=== PATIENT | male | born 1955 | race Caucasian/White ===

== ENCOUNTER 2019-04-22 18:57 | Emergency (ER) | payer MEDICARE ==
[2019-04-22 19:14] VITALS: TEMP 98.1
[2019-04-22] MEDS ORDERED: diphenhydrAMINE 50 MG/ML 1 ML VIAL IVP STA (19:40)
[2019-04-22] MEDS ORDERED: methylPREDNISolone SOD SUCCI 125 MG/2 ML VIAL IV STA (19:40)
[2019-04-22] MEDS ORDERED: FAMOTIDINE 20 MG/2 ML VIAL IV STA (19:40)
--- NOTE | 2019-04-22 20:40 | ED ---
General Adult HPI - General Chief complaint: Eye Problems Stated complaint: Left Eye Swollen Time Seen by Provider: 04/22/19 19:32 Source: patient Mode of arrival: ambulatory - History of Present Illness Initial comments: 64-year-old male, on lisinopril presenting today for chief complaint of left eye swelling. Patient states that just prior to arrival his eye began swelling. He states he was just sitting on the couch. Patient denies any ingestion of shellfish or penis. Denies any swelling of the lips or throat. Denies any difficulty breathing or swallowing. Patient states the swelling began rapidly and out of no where. Patient denies any pain in the eye. The extraocular eye movements per patient has a sensitivity to light. Patient denies any redness of the conjunctiva. Patient denies any eye drainage. Patient denies any headaches or vomiting. Remaining review of system negative upon arrival patient appears well no signs of acute distress however obvious swelling of the left eye lid. - Related Data Previous Rx's Medication Instructions Recorded Famotidine [Pepcid] 20 mg PO DAILY 5 Days #5 tablet 04/22/19 predniSONE 20 mg PO BID 5 Days #10 tab 04/22/19 Allergies Allergy/AdvReac Type Severity Reaction Status Date / Time No Known Allergies Allergy Verified 04/22/19 19:14 Review of Systems ROS Statement: Those systems with pertinent positive or pertinent negative responses have been documented in the HPI. ROS Other: All systems not noted in ROS Statement are negative. Past Medical History Past Medical History: Hyperlipidemia, Hypertension History of Any Multi-Drug Resistant Organisms: None Reported Additional Past Surgical History / Comment(s): Bilateral elbow surgery, carpal tunnel surg Past Psychological History: No Psychological Hx Reported Smoking Status: Current every day smoker Past Alcohol Use History: Heavy Past Drug Use History: Marijuana General Exam - General Exam Comments Initial Comments: General: The patient is awake and alert, in no distress, and does not appear acutely ill. Eye: +3 mm pupils are equal, round and reactive to light, extra-ocular movements are intact and without pain. No nystagmus. There is normal conjunctiva bilaterally. No signs of icterus. Ears, nose, mouth and throat: There are moist mucous membranes and no oral lesions. Swelling of left upper eye lid. No surrounding cellulitis of the orbits or pain to palpation of the swelling of the eyelids Neck: The neck is supple, there is no tenderness or JVD. Cardiovascular: There is a regular rate and rhythm. No murmur, rub or gallop is appreciated. Respiratory: Lungs are clear to auscultation, respirations are non-labored, breath sounds are equal. No wheezes, stridor, rales, or rhonchi. Gastrointestinal: [Soft, non-distended, non-tender abdomen without masses or organomegaly noted. There is no rebound or guarding present. No CVA tenderness. Bowel sounds are unremarkable.] Musculoskeletal: Normal ROM, no tenderness. Strength 5/5. Sensation intact. Pulses equal bilaterally 2+. Neurological: A&O x 3. CN II-XII intact, There are no obvious motor or sensory deficits. Coordination appears grossly intact. Speech is normal. Skin: Skin is warm and dry and no rashes or lesions are noted. Psychiatric: Cooperative, appropriate mood & affect, normal judgment. Course Vital Signs 04/22/19 04/22/19 19:10 21:01 Temperature 98.1 F Pulse Rate 66 63 Respiratory 17 16 Rate Blood Pressure 164/85 174/85 O2 Sat by Pulse 98 Oximetry Medical Decision Making - Medical Decision Making 64-year-old female who currently takes lisinopril for hypertension presenting for left eye swelling. He states it began suddenly. Patient's physical examination findings consistent with a ALLERGIC reaction. Patient was given Benadryl Pepcid and Solu-Medrol. Patient began to have immediate resolution of symptoms. Patient denied any symptoms concerning for GI edema of the lips mouth or throat. Patient states difficulty swallowing. No evidence of anaphylaxis. No rash. Patient was provided Pepcid and prednisone on discharge. Did discuss the case by attending provider Dr. Mauro who is agreeable with care plan and discharge today. Pt instructed to discontinue lisinopril and f/u with PCP on Wednesday, patient states he does have a scheduled appointment Wednesday if theyre unable to see him Wednesday for alternative hypertensive medication. Return para meters were discussed at length, as well as the importance of follow-up. Patient verbalized understanding. Disposition Clinical Impression: Allergic reaction Disposition: HOME SELF-CARE Condition: Good Instructions (If sedation given, give patient instructions): Anaphylaxis (ED), Allergy Testing (ED) Additional Instructions: Please use medication as discussed. Please discontinue lisinopril. Follow-up with PCP on Wednesday as scheduled. Please return to emergency room if the symptoms increase or worsen or for any other concerns. Prescriptions: Famotidine [Pepcid] 20 mg PO DAILY 5 Days #5 tablet predniSONE 20 mg PO BID 5 Days #10 tab Is patient prescribed a controlled substance at d/c from ED?: No Referrals: Nati Gutierrez DO [Primary Care Provider] - 1-2 days Time of Disposition: 20:38
[2019-04-22 21:02] VITALS: BP 174/85; PULSE 63; RESP 16
== END 2019-04-22 21:00 | disposition home or self-care (01) ==
LOC: EC 18:57
DX: T78.40XA Allergy, unspecified, initial encounter (principal); I10 Essential (primary) hypertension; F17.200 Nicotine dependence, unspecified, uncomplicated; Z79.899 Other long term (current) drug therapy
CPT/HCPCS: 99283; 96374; 96375 ×2; J1200; J2930

== ENCOUNTER 2021-03-01 20:41 | Inpatient (IN) | payer MEDICARE, OTHER ==
[2021-03-01] MEDS ORDERED: ONDANSETRON 4 MG/2 ML VIAL IVP STA (21:16)
[2021-03-01] MEDS ORDERED: MORPHINE SULFATE 2 MG/ML SYRINGE IVP STA (21:16)
[2021-03-01] MEDS ORDERED: SODIUM CHLORIDE 0.9% 500 ML 500 ML IV ONE (21:17)
[2021-03-01 22:07] LABS: ALT 110 U/L (4-49); AST 193 U/L (17-59); African American GFR (CKD) >90 (>60 ml/min/1.73 sqM); Albumin 3.1 g/dL (3.5-5.0); Alkaline Phosphatase 136 U/L (38-126); Anion Gap 5 mmol/L; Blood Urea Nitrogen 48 mg/dL (9-20); Calcium 8.5 mg/dL (8.4-10.2); Carbon Dioxide 34 mmol/L (22-30); Chloride 102 mmol/L (98-107); Non-African American GFR(CKD) >90 (>60 ml/min/1.73 sqM); Potassium 3.4 mmol/L (3.5-5.1); Sodium 141 mmol/L (137-145); Total Bilirubin 1.1 mg/dL (0.2-1.3); Total Protein 5.6 g/dL (6.3-8.2)
[2021-03-01 22:10] LABS: INR 1.4 (<1.2); Partial Thromboplastin Time 24.8 sec (22.0-30.0); Prothrombin Time 14.4 sec (9.0-12.0)
[2021-03-01 22:12] LABS: Anisocytosis Slight; HCT 42.7 % (39.0-53.0); HGB 14.6 gm/dL (13.0-17.5); MCH 30.2 pg (25.0-35.0); MCHC 34.3 g/dL (31.0-37.0); MCV 87.9 fL (80.0-100.0); Mean Platelet Volume 9.4; RBC 4.85 m/uL (4.30-5.90); RDW 16.2 % (11.5-15.5)
[2021-03-01 22:18] LABS: WBC 0.3 k/uL (3.8-10.6)
[2021-03-01 22:19] LABS: Glucose 45 mg/dL (74-99)
[2021-03-01] MEDS ORDERED: DEXTROSE 50% SYRINGE 50 ML IVP STA (22:23)
[2021-03-01 22:24] LABS: Glucose,Whole Blood 49 mg/dL (75-99)
--- NOTE | 2021-03-01 22:24 | XR ---
EXAMINATION TYPE: XR thoracic spine complete DATE OF EXAM: 03/01/2021 COMPARISON: NONE HISTORY: Neck pain TECHNIQUE: 3 views FINDINGS: There is some spurring in the mid thoracic spine. There is no compression fracture. Posteri or elements are intact. There is no paraspinal mass. IMPRESSION: Spondylotic changes. No fracture seen.
--- NOTE | 2021-03-01 22:25 | XR ---
EXAMINATION TYPE: XR cervical spine comp DATE OF EXAM: 03/01/2021 COMPARISON: NONE HISTORY: Neck pain TECHNIQUE: 5 views FINDINGS: Vertebra have normal alignment. There is degenerative anterior spurring in the mid and lowe r cervical spine. Posterior elements are intact. There is uncovertebral spurring and neural foraminal narrowing at C5-6 and C6-7. Atlantoaxial facet joint is intact. There are no cervical ribs. IMPRESSION: Spondylotic changes and mainly in the lower cervical spine. No fracture.
--- NOTE | 2021-03-01 22:29 | XR ---
EXAMINATION TYPE: XR ribs RT w pa chest xray DATE OF EXAM: 03/01/2021 COMPARISON: NONE HISTORY: Pain TECHNIQUE: 5 views FINDINGS: Heart and mediastinum are normal. There is coarse interstitial infiltrate in the right lung . There is air under the right diaphragm. There appears to be large pneumoperitoneum. I see no defini te pneumothorax. There are no hilar masses. I see no rib fracture. IMPRESSION: No rib fracture seen. Large pneumoperitoneum with air under the left and right diaphragm. Patient had feeding tube placed 9 days ago. I think this is too much air for 9 days after the proced ure. This exam was discussed with ER staff at 10:30 PM.
[2021-03-01 22:49] LABS: Glucose,Whole Blood 174 mg/dL (75-99)
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
[2021-03-01 23:17] LABS: Poikilocytosis (M) Present
[2021-03-01 23:18] LABS: RBC Fragments Present
[2021-03-01 23:20] LABS: Ovalocytes Present; Platelet Count 74 k/uL (150-450)
--- NOTE | 2021-03-01 23:43 | CT ---
EXAMINATION TYPE: CT abdomen pelvis w con DATE OF EXAM: 03/01/2021 COMPARISON: HISTORY: Free air on xray CT DLP: 566 mGycm Automated exposure control for dose reduction was used. CONTRAST: Performed with IV Contrast, patient injected with 100 mL of Isovue 300. Images obtained from the diaphragm to the floor the pelvis with IV contrast. There is some airspace infiltrate at the right lung base. 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 There is large pneumoperitoneum. There is gastrostomy tube in the stomach. The tube is in the anterio r body of the stomach. There is some retraction of the stomach away from the anterior abdominal wall due to the large pneumoperitoneum. There is contrast material in the large bowel down to the rectum. Bladder distends smoothly. I see no sign of a bowel obstruction. Kidneys show satisfactory contrast o pacification. There is no hydronephrosis. There is 4 cm cortical cyst anterior right kidney. There ar e spondylotic changes in the lumbar spine. There is no compression fracture. The left hip shows signi ficant arthritic disease with sclerosis and subchondral cystic changes and severe joint space narrowi ng. There is no hip fracture. There is no sign of pancreatic mass. Spleen is intact. Liver shows no focal defect. The bile ducts ar e not dilated. IMPRESSION: There is large pneumoperitoneum. Source of the air is not identified. There is gastrostomy tube which shows a stomach that is pulled away from the anterior abdominal wall by the pneumoperitoneum. There is no fluid in the peritoneal cavity to suggest a bowel leak. Pulmonary emphysema and right lower lobe pneumonia.
[2021-03-02] LABS: Glucose,Whole Blood 83 mg/dL (75-99)
[2021-03-02] MEDS ORDERED: PIPERACILLIN-TAZOBACTAM 3.375 GM in SODIUM CHLORIDE 0.9% 100 ML IVPB ONE ×2
[2021-03-02] MEDS ORDERED: NALOXONE 0.4 MG/ML 1 ML VIAL IV PRN (00:10)
[2021-03-02] MEDS ORDERED: ONDANSETRON 4 MG/2 ML VIAL IVP PRN (00:10)
[2021-03-02] MEDS ORDERED: DEXTROSE 5%-0.45% NACL 1,000 ML IV ONE (00:14)
[2021-03-02] MEDS ORDERED: Potassium Replacement Protocol 1 EACH MISC MISCELLANE PRN (00:15)
--- NOTE | 2021-03-02 01:18 | XR ---
EXAMINATION TYPE: XR abdomen 1V DATE OF EXAM: 03/02/2021 COMPARISON: NONE HISTORY: PEG tube check TECHNIQUE: Single view FINDINGS: A single view was obtained supine with contrast injected into the gastrostomy tube. Contras t was 30 mL of Isovue. There is contrast opacification of the stomach. I see no extravasation. There is some pre-existing contrast material in the descending colon: and in the sigmoid colon. Gastrostomy tube appears in good position with no evidence of contrast extravasation.
[2021-03-02] MEDS: POTASSIUM CHLORIDE 10 MEQ in WATER FOR INJECTION 1 100ML.BAG IVPB SCH ×4 (02:04→05:46)
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
[2021-03-02 06:03] LABS: Anisocytosis Slight; HCT 38.2 % (39.0-53.0); MCH 30.2 pg (25.0-35.0); MCHC 34.1 g/dL (31.0-37.0); MCV 88.5 fL (80.0-100.0); Mean Platelet Volume 8.8; RBC 4.31 m/uL (4.30-5.90)
[2021-03-02 06:11] LABS: Platelet Count 70 k/uL (150-450); WBC 0.3 k/uL (3.8-10.6)
[2021-03-02 06:53] LABS: Ovalocytes Present; RBC Fragments Present
[2021-03-02 06:55] LABS: Crenated RBC Present; Large Platelets Present
[2021-03-02 07:27] LABS: Glucose,Whole Blood 46 mg/dL (75-99)
[2021-03-02 07:40] LABS: Glucose,Whole Blood 146 mg/dL (75-99)
[2021-03-02] MEDS ORDERED: DEXTROSE 50% SYRINGE 50 ML IVP STA ×3 (07:45→18:01)
[2021-03-02] MEDS: INSULIN ASPART (NovoLOG) 100 UNIT/ML VIAL SQ SCH ×4 (07:50→21:42)
[2021-03-02] MEDS: PIPERACILLIN-TAZOBACTAM 3.375 GM in SODIUM CHLORIDE 0.9% 100 ML IVPB SCH ×2 (09:29→18:03)
[2021-03-02 10:37] LABS: African American GFR (CKD) 131.8 (60.0-200.0); Albumin 3.2 g/dL (3.80-4.90); Albumin/Globulin Ratio 1.52 (1.60-3.17); Anion Gap 4.6 mmol/L (4.00-12.00); Calcium 8.1 mg/dL (8.7-10.3); Carbon Dioxide 31.4 mmol/L (21.6-31.8); Globulin 2.1 g/dL (1.6-3.3); Non-African American GFR(CKD) 113.7 (60.0-200.0); Potassium 3.5 mmol/L (3.5-5.5); Total Bilirubin 1.2 mg/dL (0.3-1.2); Total Protein 5.3 g/dL (6.2-8.2)
[2021-03-02 12:19] LABS: Glucose,Whole Blood 37 mg/dL (75-99)
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
[2021-03-02 12:37] LABS: Glucose,Whole Blood 206 mg/dL (75-99)
[2021-03-02] MEDS: PANTOPRAZOLE 40 MG TABLET PO SCH (13:47)
[2021-03-02] MEDS: METOPROLOL TARTRATE 25 MG TAB PO SCH (13:47)
[2021-03-02] MEDS: AMIODARONE 200 MG TAB PO SCH (13:48)
[2021-03-02 17:37] LABS: Glucose,Whole Blood 39 mg/dL (75-99)
[2021-03-02 17:39] LABS: Glucose,Whole Blood 33 mg/dL (75-99)
[2021-03-02 17:53] LABS: Glucose,Whole Blood 41 mg/dL (75-99)
[2021-03-02] MEDS: DEXTROSE 5%-0.45% NACL 1,000 ML IV SCH (18:06)
[2021-03-02 18:31] LABS: Glucose,Whole Blood 135 mg/dL (75-99)
[2021-03-02 18:51] LABS: African American GFR (CKD) >90 (>60 ml/min/1.73 sqM); Anion Gap 5 mmol/L; Blood Urea Nitrogen 33 mg/dL (9-20); Calcium 8.2 mg/dL (8.4-10.2); Carbon Dioxide 29 mmol/L (22-30); Chloride 104 mmol/L (98-107); Glucose 112 mg/dL (74-99); Non-African American GFR(CKD) >90 (>60 ml/min/1.73 sqM); Potassium 3.1 mmol/L (3.5-5.1); Sodium 138 mmol/L (137-145)
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
[2021-03-02] MEDS: ATORVASTATIN 20 MG TAB PO SCH (20:42)
[2021-03-03] MEDS: PIPERACILLIN-TAZOBACTAM 3.375 GM in SODIUM CHLORIDE 0.9% 100 ML IVPB SCH ×2 (00:08→08:05)
[2021-03-03] MEDS: DEXTROSE 5%-0.45% NACL 1,000 ML IV SCH (00:08)
[2021-03-03 00:09] LABS: Glucose,Whole Blood 84 mg/dL (75-99)
[2021-03-03] MEDS: INSULIN ASPART (NovoLOG) 100 UNIT/ML VIAL SQ SCH ×4 (00:09→17:43)
[2021-03-03 05:53] LABS: Glucose,Whole Blood 93 mg/dL (75-99)
[2021-03-03 06:16] LABS: HCT 38.3 % (39.0-53.0); MCH 30.3 pg (25.0-35.0); MCV 89.2 fL (80.0-100.0); Mean Platelet Volume 8.9; RDW 15.6 % (11.5-15.5)
[2021-03-03 06:17] LABS: Platelet Count 29 k/uL (150-450); WBC 0.7 k/uL (3.8-10.6)
[2021-03-03 06:49] LABS: Anisocytosis (M) Present; Poikilocytosis (M) Present; RBC Fragments Present
[2021-03-03 06:50] LABS: Crenated RBC Present
[2021-03-03] MEDS: AMIODARONE 200 MG TAB PO SCH (08:05)
[2021-03-03] MEDS: METOPROLOL TARTRATE 25 MG TAB PO SCH (08:05)
[2021-03-03] MEDS: PANTOPRAZOLE 40 MG TABLET PO SCH (08:05)
[2021-03-03 08:37] LABS: Glucose,Whole Blood 152 mg/dL (75-99)
[2021-03-03 10:13] LABS: Glucose,Whole Blood 146 mg/dL (75-99)
[2021-03-03 10:20] LABS: ALT 396 U/L (4-49); African American GFR (CKD) >90 (>60 ml/min/1.73 sqM); Albumin 2.4 g/dL (3.5-5.0); Alkaline Phosphatase 304 U/L (38-126); Amylase <30 U/L (30-110); Anion Gap 3 mmol/L; Blood Urea Nitrogen 33 mg/dL (9-20); Carbon Dioxide 29 mmol/L (22-30); Chloride 106 mmol/L (98-107); Globulin 2.5 g/dL; Glucose 100 mg/dL (74-99); Lipase <10 U/L (23-300); Non-African American GFR(CKD) >90 (>60 ml/min/1.73 sqM); Sodium 138 mmol/L (137-145); Total Bilirubin 1.4 mg/dL (0.2-1.3); Total Protein 4.9 g/dL (6.3-8.2)
[2021-03-03 10:24] LABS: Potassium 3.2 mmol/L (3.5-5.1)
[2021-03-03 10:36] LABS: AST 909 U/L (17-59)
[2021-03-03 11:37] LABS: Glucose,Whole Blood 175 mg/dL (75-99)
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
[2021-03-03 17:52] LABS: Glucose,Whole Blood 100 mg/dL (75-99)
--- NOTE | 2021-03-03 20:05 | P.PN ---
Subjective Progress Note Date: 03/03/21 Patient was sleeping comfortably at the time of my evaluation. He was easily arousable. He did not appear to be any significant pain. He is tolerating tube feeds. Objective - Vital Signs Vital signs: Vital Signs Temp 98.4 F 03/03/21 11:31 Pulse 74 03/03/21 11:31 Resp 16 03/03/21 11:31 BP 117/64 03/03/21 11:31 Pulse Ox 96 03/03/21 11:31 Intake & Output 03/03/21 03/03/21 03/04/21 06:59 18:59 06:59 Intake Total 1740 Output Total 425 Balance 1315 Weight 43.9 kg 43.9 kg Intake: Intake, IV Titration 1400 Amount Dextrose 5%-0.45% NaCl 1, 1200 000 ml @ 100 mls/hr IV . Q10H [facility] Rx#:[id number] Piperacillin-Tazobactam 3 200 .375 gm In Sodium Chloride 0.9% 100 ml @ 25 mls/hr IVPB Q8H [facility] Rx#: [id number] Tube Feeding 340 Output: Urine 425 Other: Voiding Method Urinal Diaper # Voids 1 3 # Bowel Movements 3 - Constitutional General appearance: Present: no acute distress - EENT Eyes: Present: EOMI ENT: Present: hearing grossly normal, normal oropharynx - Respiratory Respiratory: bilateral: CTA - Cardiovascular Rhythm: regular Heart sounds: normal: S1, S2 - Gastrointestinal Gastrointestinal Comment(s): PEG tube in situ. Site appears clean. Incision superior to site with gaurav, CDI General gastrointestinal: Present: normal bowel sounds - Integumentary Integumentary: Present: normal - Neurologic Neurologic: Present: CNII-XII intact - Musculoskeletal Musculoskeletal: Present: generalized weakness, strength equal bilaterally - Psychiatric Psychiatric: Present: A&O x's 3 - Labs CBC & Chem 7: 03/03/21 05:41 03/03/21 05:41 Labs: Abnormal Lab Results - Last 24 Hours (Table) 03/03/21 03/03/21 03/03/21 Range/Units 05:41 05:41 08:35 WBC 0.7 L* (3.8-10.6) k/uL Hct 38.3 L (39.0-53.0) % RDW 15.6 H (11.5-15.5) % Plt Count 29 L D (150-450) k/uL Potassium 3.2 L (3.5-5.1) mmol/L BUN 33 H (9-20) mg/dL Creatinine 0.50 L (0.66-1.25) mg/dL Glucose 100 H (74-99) mg/dL POC Glucose (mg/dL) 152 H (75-99) mg/dL Calcium 8.0 L (8.4-10.2) mg/dL Total Bilirubin 1.4 H (0.2-1.3) mg/dL AST 909 H (17-59) U/L ALT 396 H (4-49) U/L Alkaline Phosphatase 304 H (38-126) U/L Total Protein 4.9 L (6.3-8.2) g/dL Albumin 2.4 L (3.5-5.0) g/dL Amylase <30 L (30-110) U/L Lipase <10 L (23-300) U/L 03/03/21 03/03/21 03/03/21 Range/Units 10:10 11:31 17:32 WBC (3.8-10.6) k/uL Hct (39.0-53.0) % RDW (11.5-15.5) % Plt Count (150-450) k/uL Potassium (3.5-5.1) mmol/L BUN (9-20) mg/dL Creatinine (0.66-1.25) mg/dL Glucose (74-99) mg/dL POC Glucose (mg/dL) 146 H 175 H 100 H (75-99) mg/dL Calcium (8.4-10.2) mg/dL Total Bilirubin (0.2-1.3) mg/dL AST (17-59) U/L ALT (4-49) U/L Alkaline Phosphatase (38-126) U/L Total Protein (6.3-8.2) g/dL Albumin (3.5-5.0) g/dL Amylase (30-110) U/L Lipase (23-300) U/L Microbiology - Last 24 Hours (Table) 03/02/21 00:35 Blood Culture - Preliminary Blood No Growth after 24 hours 03/02/21 00:35 Blood Culture - Preliminary Blood No Growth after 24 hours Assessment and Plan (1) Pneumoperitoneum Narrative/Plan: The patient has been evaluated by surgery. At this time and pneumoperitoneum was felt to be most likely postsurgical. Scans have shown no extravasation of contrast. The patient is tolerating tube feeds quite well without any evidence of peritoneal leak. Current Visit: Yes Status: Acute Code(s): K66.8 - OTHER SPECIFIED DISORDERS OF PERITONEUM SNOMED Code(s): 40940761 (2) Failure to thrive Narrative/Plan: This was due to progressive difficulty in swallowing, after surgery and subsequent chemoradiation. Patient is now status post PEG placement and is tolerating PEG feeds well so far. Current Visit: Yes Status: Acute Code(s): WCS3832 - SNOMED Code(s): 01734726 (3) Head and neck cancer Narrative/Plan: Patient is status post radical resection and is currently receiving chemoradiation. He is approximately half way through his treatment. His presentation with progressive difficulty swallowing, malnutrition and failure to thrive is, in most part, due to effects of treatment. - Case was discussed with case management. They have discussed the case with the patient's daughter. At this time subacute rehab is being considered which appears reasonable. However with rehab, the patient will not be able to have chemotherapy and radiation and therefore that will necessitate a break in treatment. - The patient's performance status at this time is certainly quite compromised. Therefore if a short-term rehab such as 1-2 weeks, along with better ongoing nutrition through his tube feeds is able to improve his performance status to where he can resume treatment with much better chance of completing completing it without further interruptions. In this situation, based on risk versus benefit this would be reasonable in my opinion. This was discussed in detail with the patient Current Visit: Yes Status: Acute Code(s): C76.0 - MALIGNANT NEOPLASM OF HEAD, FACE AND NECK SNOMED Code(s): 358243667 (4) Lung cancer Narrative/Plan: The patient is status post resection for stage III adenocarcinoma of the lung. The plan is for him to have adjuvant chemotherapy after completion of chemoradiation for his head and neck cancer. Even from this standpoint, measures that can improve his performance status sufficiently, would be quite beneficial. Current Visit: Yes Status: Acute Code(s): C34.90 - MALIGNANT NEOPLASM OF UNSP PART OF UNSP BRONCHUS OR LUNG SNOMED Code(s): 225827774 (5) Bicytopenia Narrative/Plan: Due to antineoplastic chemotherapy. Patient's total WBC 0.7. He is afebrile at this point. Start growth factors to enable faster WBC recovery. Plt count is 29 without any evidence of bleeding. Avoid any and the correlation or antiplatelet therapy or NSAIDs. Transfuse if less than 10. Current Visit: Yes Status: Acute Code(s): D75.89 - OTHER SPECIFIED DISEASES OF BLOOD AND BLOOD-FORMING ORGANS SNOMED Code(s): 56395480
[2021-03-03] MEDS: FILGRASTIM-SNDZ 300 MCG/0.5 ML SYRINGE SQ SCH (22:15)
[2021-03-03] MEDS: ATORVASTATIN 20 MG TAB PO SCH (22:15)
[2021-03-03 23:57] LABS: Glucose,Whole Blood 103 mg/dL (75-99)
[2021-03-04] MEDS: INSULIN ASPART (NovoLOG) 100 UNIT/ML VIAL SQ SCH ×4 (00:15→17:36)
[2021-03-04 06:32] LABS: Glucose,Whole Blood 192 mg/dL (75-99)
[2021-03-04 06:58] LABS: Anisocytosis Slight; HGB 14.3 gm/dL (13.0-17.5); MCH 29.6 pg (25.0-35.0); MCHC 33.4 g/dL (31.0-37.0); MCV 88.8 fL (80.0-100.0); Mean Platelet Volume 8.5; RBC 4.84 m/uL (4.30-5.90); RDW 16.3 % (11.5-15.5)
[2021-03-04 07:05] LABS: WBC 1.2 k/uL (3.8-10.6)
[2021-03-04 07:07] LABS: Platelet Count 15 k/uL (150-450)
[2021-03-04 09:16] LABS: African American GFR (CKD) >90 (>60 ml/min/1.73 sqM); Anion Gap 4 mmol/L; Blood Urea Nitrogen 42 mg/dL (9-20); Calcium 8.2 mg/dL (8.4-10.2); Carbon Dioxide 30 mmol/L (22-30); Chloride 109 mmol/L (98-107); Glucose 173 mg/dL (74-99); Non-African American GFR(CKD) >90 (>60 ml/min/1.73 sqM); Sodium 143 mmol/L (137-145)
[2021-03-04] MEDS: METOPROLOL TARTRATE 25 MG TAB PO SCH (09:31)
[2021-03-04] MEDS: PANTOPRAZOLE 40 MG TABLET PO SCH (09:31)
[2021-03-04] MEDS: AMIODARONE 200 MG TAB PO SCH (09:31)
[2021-03-04 09:40] LABS: Magnesium 1.8 mg/dL (1.6-2.3); Potassium 3.9 mmol/L (3.5-5.1)
[2021-03-04 10:29] LABS: Band Neutrophils % 6 %; Lymphocytes # (M) 0.22 k/uL (1.0-4.8); Monocytes # (M) 0.02 k/uL (0-1.0); Neutrophils % (M) 74 %; Nucleated Red Blood Cells 0 /100 WBC (0-0); Total Cells Counted 50
[2021-03-04 10:30] LABS: Crenated RBC Present; Poikilocytosis (M) Present
[2021-03-04 11:45] LABS: Glucose,Whole Blood 215 mg/dL (75-99)
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
--- NOTE | 2021-03-04 13:44 | P.PN ---
Subjective Progress Note Date: 03/04/21 Principal diagnosis: Failure to thrive He is still lethargic, Platelets have trended down further and LFTs increase quite a bit. I spoke to primary team and will discontinue Statin, further evaluate liver ultrasound and chest xray, hold discharge today. Coags ordered and CBC and CMP in place for am. Objective - Vital Signs Vital signs: Vital Signs Temp 98.3 F 03/04/21 11:51 Pulse 82 03/04/21 11:51 Resp 18 03/04/21 11:51 BP 128/78 03/04/21 11:51 Pulse Ox 97 03/04/21 11:51 Intake & Output 03/03/21 03/04/21 03/04/21 18:59 06:59 18:59 Intake Total 570 Output Total 1 Balance 569 Weight 43.9 kg 42.3 kg Intake: Tube Feeding 570 Output: Stool 1 Other: Voiding Method Urinal Urinal Urinal Diaper Diaper Diaper # Voids 3 0 # Bowel Movements 3 0 - Constitutional General appearance: Present: mild distress - EENT Eyes: Present: scleral icterus, normal appearance ENT: Present: other - Neck Neck: Present: normal ROM - Respiratory Respiratory: left: diminished, rhonchi - Cardiovascular Rhythm: regularly irregular - Peripheral edema leg Peripheral Edema: bilateral: 1+ - Gastrointestinal General gastrointestinal: Present: distended, tenderness - Integumentary Integumentary: Present: pale - Musculoskeletal Musculoskeletal: Present: generalized weakness - Psychiatric Psychiatric: Present: A&O x's 3 - Labs CBC & Chem 7: 03/04/21 06:27 03/04/21 06:27 Labs: Abnormal Lab Results - Last 24 Hours (Table) 03/03/21 03/03/21 03/04/21 Range/Units 17:32 23:55 06:27 WBC 1.2 L* (3.8-10.6) k/uL RDW 16.3 H (11.5-15.5) % Plt Count 15 L* (150-450) k/uL Neutrophils # (Manual) 0.90 L (1.3-7.7) k/uL Lymphocytes # (Manual) 0.22 L (1.0-4.8) k/uL Chloride (98-107) mmol/L BUN (9-20) mg/dL Creatinine (0.66-1.25) mg/dL Glucose (74-99) mg/dL POC Glucose (mg/dL) 100 H 103 H (75-99) mg/dL Calcium (8.4-10.2) mg/dL 03/04/21 03/04/21 03/04/21 Range/Units 06:27 06:30 11:28 WBC (3.8-10.6) k/uL RDW (11.5-15.5) % Plt Count (150-450) k/uL Neutrophils # (Manual) (1.3-7.7) k/uL Lymphocytes # (Manual) (1.0-4.8) k/uL Chloride 109 H (98-107) mmol/L BUN 42 H (9-20) mg/dL Creatinine 0.53 L (0.66-1.25) mg/dL Glucose 173 H (74-99) mg/dL POC Glucose (mg/dL) 192 H 215 H (75-99) mg/dL Calcium 8.2 L (8.4-10.2) mg/dL Microbiology - Last 24 Hours (Table) 03/02/21 00:35 Blood Culture - Preliminary Blood No Growth after 48 hours 03/02/21 00:35 Blood Culture - Preliminary Blood No Growth after 48 hours Assessment and Plan (1) Elevated liver enzymes Current Visit: Yes Status: Acute Code(s): R74.8 - ABNORMAL LEVELS OF OTHER SERUM ENZYMES SNOMED Code(s): 578475460 (2) Thrombocytopenia Current Visit: Yes Status: Acute Code(s): D69.6 - THROMBOCYTOPENIA, UNSPECIFIED SNOMED Code(s): 306305617 (3) Generalized muscle weakness Current Visit: Yes Status: Acute Code(s): M62.81 - MUSCLE WEAKNESS (GENERALIZED) SNOMED Code(s): 88667551 (4) Bicytopenia Current Visit: Yes Status: Acute Code(s): D75.89 - OTHER SPECIFIED DISEASES OF BLOOD AND BLOOD-FORMING ORGANS SNOMED Code(s): 71590054 (5) Head and neck cancer Current Visit: Yes Status: Acute Code(s): C76.0 - MALIGNANT NEOPLASM OF HEAD, FACE AND NECK SNOMED Code(s): 953317655 (6) Lung cancer Current Visit: Yes Status: Acute Code(s): C34.90 - MALIGNANT NEOPLASM OF UNSP PART OF UNSP BRONCHUS OR LUNG SNOMED Code(s): 667393419 Plan: Assessment and Plan: Increased Liver Function: - Recheck in am - Discontinue Statin - Check Coags Worsening Thrombocytopenia: - Possibly due to LFTs - Await Coags - MOnitor for s/s bleeding Pneumoperitoneum The patient has been evaluated by surgery. At this time and pneumoperitoneum was felt to be most likely postsurgical. Scans have shown no extravasation of contrast. The patient is tolerating tube feeds Failure to thrive - Generalized Myopathy/Weakess - This was due to progressive difficulty in swallowing, after surgery and subsequent chemoradiation. - Patient is now status post PEG placement and is tolerating PEG feeds well so far. Head and neck cancer Patient is status post radical resection and is currently receiving chemoradiation. He is approximately half way through his treatment. His presentation with progressive difficulty swallowing, malnutrition and failure to thrive is, in most part, due to effects of treatment. - Case was discussed with case management. They have discussed the case with the patient's daughter. At this time subacute rehab is being considered which appears reasonable. However with rehab, the patient will not be able to have chemotherapy and radiation and therefore that will necessitate a break in treatment. - The patient's performance status at this time is certainly quite compromised. Therefore if a short-term rehab such as 1-2 weeks, along with better ongoing nutrition through his tube feeds is able to improve his performance status to where he can resume treatment with much better chance of completing completing it without further interruptions. In this situation, based on risk versus benefit this would be reasonable in my opinion. This was discussed in detail with the patient Lung cancer The patient is status post resection for stage III adenocarcinoma of the lung. The plan is for him to have adjuvant chemotherapy after completion of chemoradiation for his head and neck cancer. Even from this standpoint, measures that can improve his performance status sufficiently, would be quite beneficial. (5) Bicytopenia - Secondary to chemotherapy - Continue on growth factor, WBC 1.5 - Check chest xray today Discussed in detail with primary team Physician Attest: I have completed the full history and physical and agree with above dictation, dictated as a scribe.
--- NOTE | 2021-03-04 14:11 | XR ---
EXAMINATION TYPE: XR chest 2V DATE OF EXAM: 03/04/2021 COMPARISON: NONE HISTORY: Gastrostomy tube in stomach. Free air. Left lobe is diminished. TECHNIQUE: Frontal and lateral views of the chest are obtained. FINDINGS: There is a large amount of pneumoperitoneum, which is known below the bilateral hemidiaphr agms. Diffuse patchy airspace opacities are seen at the right midlung and right lower lobe suggestiv e of infectious/inflammatory process, such as pneumonia.. No large pleural effusion. No pneumothorax. The left lung is relatively clear. Heart size is within normal limits. Atherosclerotic aorta. Hypera eration of lungs and flattening of the diaphragms with increased retrosternal airspace suggestive of severe COPD. IMPRESSION: 1. Patchy airspace opacities within the right midlung and right lung base are suggestive of infectiou s/inflammatory processes, such as pneumonia. 2. Severe emphysematous changes. 3. Atherosclerotic aorta. 4. Large amount of pneumoperitoneum under the hemidiaphragms is known.
[2021-03-04 14:20] LABS: INR 1.1 (<1.2); Partial Thromboplastin Time 25.8 sec (22.0-30.0); Prothrombin Time 11.9 sec (9.0-12.0)
[2021-03-04 17:27] LABS: Glucose,Whole Blood 101 mg/dL (75-99)
[2021-03-04] MEDS: busPIRone HCl 5 MG TAB PO PRN (17:43)
[2021-03-04] MEDS: FILGRASTIM-SNDZ 300 MCG/0.5 ML SYRINGE SQ SCH (17:45)
[2021-03-04] MEDS: MORPHINE SULFATE 2 MG/ML SYRINGE IVP PRN ×2 (19:58→23:35)
[2021-03-04 23:53] LABS: Glucose,Whole Blood 209 mg/dL (75-99)
[2021-03-05] MEDS: INSULIN ASPART (NovoLOG) 100 UNIT/ML VIAL SQ SCH ×4 (00:02→17:38)
[2021-03-05] MEDS: MORPHINE SULFATE 2 MG/ML SYRINGE IVP PRN ×5 (04:41→21:49)
[2021-03-05 05:59] LABS: Glucose,Whole Blood 87 mg/dL (75-99)
[2021-03-05 07:49] LABS: HCT 36.6 % (39.0-53.0); HGB 13.1 gm/dL (13.0-17.5); MCH 31.6 pg (25.0-35.0); MCHC 35.9 g/dL (31.0-37.0); MCV 88.1 fL (80.0-100.0); Mean Platelet Volume 10.3; RBC 4.15 m/uL (4.30-5.90); RDW 15.5 % (11.5-15.5)
[2021-03-05 08:07] LABS: Platelet Count 12 k/uL (150-450)
[2021-03-05 08:08] LABS: WBC 0.7 k/uL (3.8-10.6)
[2021-03-05] MEDS: METOPROLOL TARTRATE 25 MG TAB PO SCH (08:26)
[2021-03-05] MEDS: PANTOPRAZOLE 40 MG TABLET PO SCH (08:26)
[2021-03-05] MEDS: AMIODARONE 200 MG TAB PO SCH (08:26)
--- NOTE | 2021-03-05 09:46 | US ---
EXAMINATION TYPE: US liver DATE OF EXAM: 03/05/2021 COMPARISON: CT 4 days ago CLINICAL HISTORY: increased LFTs. EXAM MEASUREMENTS: Liver Length: 14.1 cm Gallbladder Wall: 0.3 cm CBD: 0.3 cm Right Kidney: cm Extensive midline bowel gas and air. Patient has peg tube. Pancreas: Obscured by bowel gas Liver: wnl Gallbladder: No stones seen Evidence for sonographic Castro's sign: No CBD: wnl Right Kidney: echogenic, loss of cortical medullary differentiation. Lower pole cyst measures 2.6 x 3.4 x 3.2 cm. Suboptimal study due to PEG tube and overlying bowel gas. Visualized liver slightly heterogeneous wit hout worrisome mass or ductal dilatation seen on images saved. No shadowing mobile gallstones in gall bladder. No gross right-sided hydronephrosis. IMPRESSION: Suboptimal study without new intrahepatic mass or intrahepatic ductal dilatation.
[2021-03-05 10:02] LABS: Crenated RBC Present; Poikilocytosis (M) Present
[2021-03-05] MEDS ORDERED: MELATONIN 5 MG TABLET PO PRN (11:40)
[2021-03-05] MEDS ORDERED: ACETAMINOPHEN TAB 325 MG TAB PO STA (11:41)
[2021-03-05 12:09] LABS: Glucose,Whole Blood 150 mg/dL (75-99)
[2021-03-05 12:23] LABS: Total Bilirubin 1.1 mg/dL (0.2-1.3)
--- NOTE | 2021-03-05 13:06 | P.PN ---
Subjective Progress Note Date: 03/05/21 Principal diagnosis: Failure to thrive Liver function improved, Chest xray reveals likely pneumonia, infectious process. Right mid/lower lobe. Patient is neutropenic therefore cefepime ordered. Repeat newton cultures ordered. Platelets 12K, no sign of bleeding, Liver function improved, ultrasound without etiology Objective - Vital Signs Vital signs: Vital Signs Temp 98.3 F 03/05/21 11:35 Pulse 82 03/05/21 11:35 Resp 16 03/05/21 11:35 BP 124/86 03/05/21 11:35 Pulse Ox 95 03/05/21 11:35 Intake & Output 03/04/21 03/05/21 03/05/21 18:59 06:59 18:59 Intake Total 780 240 Balance 780 240 Weight 43.7 kg Intake: Tube Feeding 480 240 Other 300 Other: Voiding Method Urinal Urinal Diaper Diaper # Voids 2 2 # Bowel Movements 1 1 - Exam - Constitutional General appearance: Present: mild distress - EENT Eyes: Present: scleral icterus, normal appearance ENT: Present: other - Neck Neck: Present: normal ROM - Respiratory Respiratory: Right: diminished, rhonchi - Cardiovascular Rhythm: regularly irregular - Peripheral edema leg Peripheral Edema: bilateral: 1+ - Gastrointestinal General gastrointestinal: Present: distended, tenderness - Integumentary Integumentary: Present: pale - Musculoskeletal Musculoskeletal: Present: generalized weakness - Psychiatric Psychiatric: Present: A&O x's 3 - Labs CBC & Chem 7: 03/05/21 07:15 03/04/21 06:27 Labs: Abnormal Lab Results - Last 24 Hours (Table) 03/04/21 03/04/21 03/05/21 Range/Units 17:23 23:50 07:15 WBC 0.7 L* (3.8-10.6) k/uL RBC 4.15 L (4.30-5.90) m/uL Hct 36.6 L (39.0-53.0) % Plt Count 12 L* (150-450) k/uL POC Glucose (mg/dL) 101 H 209 H (75-99) mg/dL AST (17-59) U/L ALT (4-49) U/L 03/05/21 03/05/21 Range/Units 11:49 12:06 WBC (3.8-10.6) k/uL RBC (4.30-5.90) m/uL Hct (39.0-53.0) % Plt Count (150-450) k/uL POC Glucose (mg/dL) 150 H (75-99) mg/dL AST 158 H (17-59) U/L ALT 259 H (4-49) U/L Microbiology - Last 24 Hours (Table) 03/02/21 00:35 Blood Culture - Preliminary Blood No Growth after 72 hours 03/02/21 00:35 Blood Culture - Preliminary Blood No Growth after 72 hours Assessment and Plan (1) Elevated liver enzymes Current Visit: Yes Status: Acute Code(s): R74.8 - ABNORMAL LEVELS OF OTHER SERUM ENZYMES SNOMED Code(s): 042692425 (2) Thrombocytopenia Current Visit: Yes Status: Acute Code(s): D69.6 - THROMBOCYTOPENIA, UNSPECIFIED SNOMED Code(s): 822520306 (3) Generalized muscle weakness Current Visit: Yes Status: Acute Code(s): M62.81 - MUSCLE WEAKNESS (GENERALIZED) SNOMED Code(s): 70786315 (4) Bicytopenia Current Visit: Yes Status: Acute Code(s): D75.89 - OTHER SPECIFIED DISEASES OF BLOOD AND BLOOD-FORMING ORGANS SNOMED Code(s): 82850507 (5) Head and neck cancer Current Visit: Yes Status: Acute Code(s): C76.0 - MALIGNANT NEOPLASM OF HEAD, FACE AND NECK SNOMED Code(s): 279168157 (6) Lung cancer Current Visit: Yes Status: Acute Code(s): C34.90 - MALIGNANT NEOPLASM OF UNSP PART OF UNSP BRONCHUS OR LUNG SNOMED Code(s): 217490231 Plan: Assessment and Plan: Pneumonia: - In picture of neutropenia: - IV antibiotics and repeat cultures ordered Neutropenia: - COntinue on Zarxio - Daily CBC - Abx - Monitoring closely Increased Liver Function: - Recheck in am - Improved - Discontinue Statin - Check Coags - Ultrasound without abnormalities Worsening Thrombocytopenia: - increased LFTs, however trending diwn - Stable Coags - MOnitor for s/s bleeding Pneumoperitoneum The patient has been evaluated by surgery. At this time and pneumoperitoneum was felt to be most likely postsurgical. Scans have shown no extravasation of contrast. The patient is tolerating tube feeds Failure to thrive - Generalized Myopathy/Weakess - This was due to progressive difficulty in swallowing, after surgery and subse quent chemoradiation. - Patient is now status post PEG placement and is tolerating PEG feeds well so far. Head and neck cancer Patient is status post radical resection and is currently receiving chemoradiation. He is approximately half way through his treatment. His pr esentation with progressive difficulty swallowing, malnutrition and failure to thrive is, in most part, due to effects of treatment. - Case was discussed with case management. They have discussed the case with the patient's daughter. At this time subacute rehab is being considered which appears reasonable. However with rehab, the patient will not be able to have chemotherapy and radiation and therefore that will necessitate a break in treatment. - The patient's performance status at this time is certainly quite compromised. Therefore if a short-term rehab such as 1-2 weeks, along with better ongoing nutrition through his tube feeds is able to improve his performance status to where he can resume treatment with much better chance of completing completing it without further interruptions. In this situation, based on risk versus benefit this would be reasonable in my opinion. This was discussed in detail with the patient Lung cancer The patient is status post resection for stage III adenocarcinoma of the lung. The plan is for him to have adjuvant chemotherapy after completion of chemoradiation for his head and neck cancer. Even from this standpoint, measures that can improve his performance status sufficiently, would be quite beneficial. Discussed in detail with primary team
[2021-03-05 13:08] LABS: African American GFR (CKD) 144.5 (60.0-200.0); Albumin 2.8 g/dL (3.80-4.90); Albumin/Globulin Ratio 1.4 (1.60-3.17); Anion Gap 6.9 mmol/L (4.00-12.00); Calcium 8.5 mg/dL (8.7-10.3); Carbon Dioxide 33.1 mmol/L (21.6-31.8); Non-African American GFR(CKD) 124.6 (60.0-200.0); Potassium 3.4 mmol/L (3.5-5.5); Total Bilirubin 1.1 mg/dL (0.3-1.2); Total Protein 4.8 g/dL (6.2-8.2)
[2021-03-05 15:12] LABS: Appearance,Urine Clear (Clear); Bilirubin,Urine Negative (Negative); Blood,Urine Moderate (Negative); Color,Urine Yellow; Glucose,Urine (UA) Trace (Negative); Ketones,Urine Negative (Negative); Leukocyte Esterase,Urine Negative (Negative); Mucus,Urine Rare /hpf; Nitrite,Urine Negative (Negative); Protein,Urine 1+ (Negative); RBC,Urine 9 /hpf (0-5); Specific Gravity,Urine 1.021 (1.001-1.035); Squamous Epithelial Cell,Urine 1 /hpf (0-4); WBC,Urine 4 /hpf (0-5)
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
[2021-03-05] MEDS ORDERED: CEFEPIME 2 GM in SODIUM CHLORIDE 0.9% 100 ML IVPB ONE (16:00)
[2021-03-05 17:23] LABS: Glucose,Whole Blood 208 mg/dL (75-99)
[2021-03-05] MEDS: FILGRASTIM-SNDZ 300 MCG/0.5 ML SYRINGE SQ SCH (17:38)
--- NOTE | 2021-03-05 21:42 | P.PN ---
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 In the ER he underwent an extensive radiologic evaluation as well. He was found have pneumoperitoneum and surgery was contacted who felt it was related to his recent PEG tube insertion. He was admitted for further surgical evaluation and pain control. Oncology and surgery were consulted. Patient tolerated tube feeds without difficulty. He developed worsening thrombocytopenia throughout his hospital stay as well as neutropenia felt to be secondary to chemotherapy. He was started on GM-CSF. He also developed transaminitis. Liver ultrasound did not show any signs of metastatic disease. Statin was held. Thoracic spine e-vcx-nlbhojjxipu changes, no fracture Cervical spine o-rpr-sieabriopvt changes, no fracture Rib and chest [id number], coarse interstitial infiltrate in the right lung CT abdomen and pelvis-large pneumoperitoneum, gastrostomy tube shows a stomach of pulling away from the anterior abdominal wall secondary to pneumoperitoneum, pulmonary emphysema and right lower lobe pneumonia Abdominal a-itn-Z-tube in good position with no extravasation of contrast Chest x-ray 03/04-patchy airspace opacities in the right midlung and right lung base Patient seen and examined at bedside. He reports that he wants to go home. He reports he spent a lot of time in the hospital over the last 8 months. We discussed that his platelets are low and his white blood cell count is low and that I will need to get clearance from oncology prior to discharge. He reports that this pain is currently well controlled. General: non toxic, no distress, frail, chronically ill-appearing, wasting of temporal and buccal mucosa Derm: warm, dry Head: atraumatic, normocephalic, symmetric Eyes: EOMI, no lid lag, anicteric sclera Mouth: no lip lesion, mucus membranes dry Cardiovascular: S1S2 reg, no murmur, positive posterior tibial pulse bilateral, Lungs: Decreased breath sounds bilateral, no rhonchi, no rales , no accessory muscle use Abdominal: soft, tender to palpation near tube site, no guarding, no appreciable organomegaly Ext: no gross muscle atrophy, no edema, no contractures Neuro: CN II-XI grossly intact, no focal neuro deficits Psych: Alert, oriented, appropriate affect Pneumoperitoneum -Status post peg tube placement and felt to be an appropriate cause of this. No leaking noted from G2 psych evaluation -Surgery recommendations appreciated Neutropenia and thrombocytopenia secondary to chemotherapy for cancer of the head and neck -Oncology recommendations -On GM-CSF -No indication for transfusion at this time line-follow CBC -Oncology has started the patient on cefepime secondary to concerns for pneumonia in the setting of neutropenia. Concern would be that the right lung infiltrate is more reflective of his known cancer with no complaints of increased cough or shortness of breath Severe protein calorie malnutrition, failure to thrive -Continue with tube feedings -Seen by speech therapy. Patient was determined not safe to swallow and would need a modified barium swallow study, however he declined to undergo this s wallow study and he realizes he is at risk for aspiration. Transaminitis -Likely secondary to medications -Statin on hold -Liver ultrasound without any signs of metastatic disease Hypernatremia -Likely secondary to decreased water intake -Increase free water tube feeds and 30-75 mL every 4 hours -Repeat sodium level in a.m. History of lung cancer Hypertension Dyslipidemia Objective - Vital Signs Vital signs: Vital Signs Temp 98.4 F 03/05/21 19:33 Pulse 87 03/05/21 20:00 Resp 14 03/05/21 20:00 BP 147/88 03/05/21 19:33 Pulse Ox 99 03/05/21 19:33 Intake & Output 03/05/21 03/05/21 03/06/21 06:59 18:59 06:59 Intake Total 240 Balance 240 Weight 43.7 kg 43.7 kg Intake: Tube Feeding 240 Other: Voiding Method Urinal Urinal Diaper Diaper # Voids 2 1 # Bowel Movements 1 1 - Labs CBC & Chem 7: 03/05/21 07:15 03/05/21 07:15 Labs: Abnormal Lab Results - Last 24 Hours (Table) 03/04/21 03/05/21 03/05/21 Range/Units 23:50 07:15 07:15 WBC 0.7 L* (3.8-10.6) k/uL RBC 4.15 L (4.30-5.90) m/uL Hct 36.6 L (39.0-53.0) % Plt Count 12 L* (150-450) k/uL Sodium 150 H (135-145) mmol/L Potassium 3.4 L (3.5-5.5) mmol/L Chloride 110 H (96-109) mmol/L Carbon Dioxide 33.1 H (21.6-31.8) mmol/L BUN 38.0 H (9.0-27.0) mg/dL Creatinine 0.4 L (0.6-1.5) mg/dL BUN/Creatinine Ratio 95.00 H (12.00-20.00) Ratio Glucose 115 H (70-110) mg/dL POC Glucose (mg/dL) 209 H (75-99) mg/dL Calcium 8.5 L (8.7-10.3) mg/dL AST 164 H (14-35) U/L ALT 282 H (10-49) U/L Alkaline Phosphatase 386 H (41-126) U/L Total Protein 4.8 L (6.2-8.2) g/dL Albumin 2.80 L (3.80-4.90) g/dL Albumin/Globulin Ratio 1.40 L (1.60-3.17) g/dL Urine Protein (Negative) Urine Glucose (UA) (Negative) Urine Blood (Negative) Urine RBC (0-5) /hpf Urine Mucus (None) /hpf 03/05/21 03/05/21 03/05/21 Range/Units 11:49 12:06 14:43 WBC (3.8-10.6) k/uL RBC (4.30-5.90) m/uL Hct (39.0-53.0) % Plt Count (150-450) k/uL Sodium (135-145) mmol/L Potassium (3.5-5.5) mmol/L Chloride (96-109) mmol/L Carbon Dioxide (21.6-31.8) mmol/L BUN (9.0-27.0) mg/dL Creatinine (0.6-1.5) mg/dL BUN/Creatinine Ratio (12.00-20.00) Ratio Glucose (70-110) mg/dL POC Glucose (mg/dL) 150 H (75-99) mg/dL Calcium (8.7-10.3) mg/dL AST 158 H (14-35) U/L ALT 259 H (10-49) U/L Alkaline Phosphatase (41-126) U/L Total Protein (6.2-8.2) g/dL Albumin (3.80-4.90) g/dL Albumin/Globulin Ratio (1.60-3.17) g/dL Urine Protein 1+ H (Negative) Urine Glucose (UA) Trace H (Negative) Urine Blood Moderate H (Negative) Urine RBC 9 H (0-5) /hpf Urine Mucus Rare H (None) /hpf 03/05/21 Range/Units 17:21 WBC (3.8-10.6) k/uL RBC (4.30-5.90) m/uL Hct (39.0-53.0) % Plt Count (150-450) k/uL Sodium (135-145) mmol/L Potassium (3.5-5.5) mmol/L Chloride (96-109) mmol/L Carbon Dioxide (21.6-31.8) mmol/L BUN (9.0-27.0) mg/dL Creatinine (0.6-1.5) mg/dL BUN/Creatinine Ratio (12.00-20.00) Ratio Glucose (70-110) mg/dL POC Glucose (mg/dL) 208 H (75-99) mg/dL Calcium (8.7-10.3) mg/dL AST (14-35) U/L ALT (10-49) U/L Alkaline Phosphatase (41-126) U/L Total Protein (6.2-8.2) g/dL Albumin (3.80-4.90) g/dL Albumin/Globulin Ratio (1.60-3.17) g/dL Urine Protein (Negative) Urine Glucose (UA) (Negative) Urine Blood (Negative) Urine RBC (0-5) /hpf Urine Mucus (None) /hpf Microbiology - Last 24 Hours (Table) 03/02/21 00:35 Blood Culture - Preliminary Blood No Growth after 72 hours 03/02/21 00:35 Blood Culture - Preliminary Blood No Growth after 72 hours
[2021-03-06 00:10] LABS: Glucose,Whole Blood 144 mg/dL (75-99)
[2021-03-06] MEDS: CEFEPIME 2 GM in SODIUM CHLORIDE 0.9% 100 ML IVPB SCH ×3 (00:22→17:52)
[2021-03-06] MEDS: INSULIN ASPART (NovoLOG) 100 UNIT/ML VIAL SQ SCH ×4 (00:23→17:50)
[2021-03-06 05:35] LABS: HCT 39.6 % (39.0-53.0); HGB 13.6 gm/dL (13.0-17.5); MCH 30.6 pg (25.0-35.0); MCHC 34.3 g/dL (31.0-37.0); MCV 89.2 fL (80.0-100.0); Mean Platelet Volume 8.1; RBC 4.43 m/uL (4.30-5.90); RDW 15.4 % (11.5-15.5)
[2021-03-06 05:38] LABS: WBC 0.8 k/uL (3.8-10.6)
[2021-03-06 05:39] LABS: Platelet Count 9 k/uL (150-450)
[2021-03-06 05:48] LABS: Glucose,Whole Blood 199 mg/dL (75-99)
[2021-03-06] MEDS: PANTOPRAZOLE 40 MG TABLET PO SCH (07:20)
[2021-03-06] MEDS: AMIODARONE 200 MG TAB PO SCH (07:20)
[2021-03-06] MEDS: METOPROLOL TARTRATE 25 MG TAB PO SCH (07:20)
[2021-03-06 11:18] LABS: Glucose,Whole Blood 225 mg/dL (75-99)
--- NOTE | 2021-03-06 11:45 | P.PN ---
Subjective Progress Note Date: 03/06/21 Principal diagnosis: Failure to thrive WBC decreased 0.8 today, still awaiting cmp. platelets 9K, transfusion ordered. Patient planning for home with PT/OT. remains afebrile Objective - Vital Signs Vital signs: Vital Signs Temp 98 F 03/06/21 11:09 Pulse 83 03/06/21 11:09 Resp 18 03/06/21 11:09 BP 131/81 03/06/21 11:09 Pulse Ox 98 03/06/21 11:09 Intake & Output 03/05/21 03/06/21 03/06/21 18:59 06:59 18:59 Intake Total 0 Output Total 200 Balance -200 0 Weight 43.7 kg 44 kg Intake: Blood Product 0 Platelet Pheresis Pas 0 Psoralen Unit [id number] Output: Urine 200 Other: Voiding Method Urinal Diaper # Voids 1 1 # Bowel Movements 1 - Exam - Constitutional General appearance: Present: mild distress - EENT Eyes: Present: scleral icterus, normal appearance ENT: Present: other - Neck Neck: Present: normal ROM - Respiratory Respiratory: Right: diminished, rhonchi - Cardiovascular Rhythm: regularly irregular - Peripheral edema leg Peripheral Edema: bilateral: 1+ - Gastrointestinal General gastrointestinal: Present: distended, tenderness - Integumentary Integumentary: Present: pale - Musculoskeletal Musculoskeletal: Present: generalized weakness - Psychiatric Psychiatric: Present: A&O x's 3 - Labs CBC & Chem 7: 03/06/21 04:53 03/05/21 07:15 Labs: Abnormal Lab Results - Last 24 Hours (Table) 03/05/21 03/05/21 03/05/21 Range/Units 07:15 11:49 12:06 WBC (3.8-10.6) k/uL Plt Count (150-450) k/uL Sodium 150 H (135-145) mmol/L Potassium 3.4 L (3.5-5.5) mmol/L Chloride 110 H (96-109) mmol/L Carbon Dioxide 33.1 H (21.6-31.8) mmol/L BUN 38.0 H (9.0-27.0) mg/dL Creatinine 0.4 L (0.6-1.5) mg/dL BUN/Creatinine Ratio 95.00 H (12.00-20.00) Ratio Glucose 115 H (70-110) mg/dL POC Glucose (mg/dL) 150 H (75-99) mg/dL Calcium 8.5 L (8.7-10.3) mg/dL AST 164 H 158 H (14-35) U/L ALT 282 H 259 H (10-49) U/L Alkaline Phosphatase 386 H (41-126) U/L Total Protein 4.8 L (6.2-8.2) g/dL Albumin 2.80 L (3.80-4.90) g/dL Albumin/Globulin Ratio 1.40 L (1.60-3.17) g/dL Urine Protein (Negative) Urine Glucose (UA) (Negative) Urine Blood (Negative) Urine RBC (0-5) /hpf Urine Mucus (None) /hpf 03/05/21 03/05/21 03/06/21 Range/Units 14:43 17:21 00:08 WBC (3.8-10.6) k/uL Plt Count (150-450) k/uL Sodium (135-145) mmol/L Potassium (3.5-5.5) mmol/L Chloride (96-109) mmol/L Carbon Dioxide (21.6-31.8) mmol/L BUN (9.0-27.0) mg/dL Creatinine (0.6-1.5) mg/dL BUN/Creatinine Ratio (12.00-20.00) Ratio Glucose (70-110) mg/dL POC Glucose (mg/dL) 208 H 144 H (75-99) mg/dL Calcium (8.7-10.3) mg/dL AST (14-35) U/L ALT (10-49) U/L Alkaline Phosphatase (41-126) U/L Total Protein (6.2-8.2) g/dL Albumin (3.80-4.90) g/dL Albumin/Globulin Ratio (1.60-3.17) g/dL Urine Protein 1+ H (Negative) Urine Glucose (UA) Trace H (Negative) Urine Blood Moderate H (Negative) Urine RBC 9 H (0-5) /hpf Urine Mucus Rare H (None) /hpf 03/06/21 03/06/21 03/06/21 Range/Units 04:53 05:46 11:17 WBC 0.8 L* (3.8-10.6) k/uL Plt Count 9 L* (150-450) k/uL Sodium (135-145) mmol/L Potassium (3.5-5.5) mmol/L Chloride (96-109) mmol/L Carbon Dioxide (21.6-31.8) mmol/L BUN (9.0-27.0) mg/dL Creatinine (0.6-1.5) mg/dL BUN/Creatinine Ratio (12.00-20.00) Ratio Glucose (70-110) mg/dL POC Glucose (mg/dL) 199 H 225 H (75-99) mg/dL Calcium (8.7-10.3) mg/dL AST (14-35) U/L ALT (10-49) U/L Alkaline Phosphatase (41-126) U/L Total Protein (6.2-8.2) g/dL Albumin (3.80-4.90) g/dL Albumin/Globulin Ratio (1.60-3.17) g/dL Urine Protein (Negative) Urine Glucose (UA) (Negative) Urine Blood (Negative) Urine RBC (0-5) /hpf Urine Mucus (None) /hpf Microbiology - Last 24 Hours (Table) 03/02/21 00:35 Blood Culture - Preliminary Blood No Growth after 96 hours 03/02/21 00:35 Blood Culture - Preliminary Blood No Growth after 96 hours Assessment and Plan (1) Elevated liver enzymes Current Visit: Yes Status: Acute Code(s): R74.8 - ABNORMAL LEVELS OF OTHER SERUM ENZYMES SNOMED Code(s): 095520486 (2) Thrombocytopenia Current Visit: Yes Status: Acute Code(s): D69.6 - THROMBOCYTOPENIA, UNSPECIFIED SNOMED Code(s): 511464482 (3) Generalized muscle weakness Current Visit: Yes Status: Acute Code(s): M62.81 - MUSCLE WEAKNESS (GENERALIZED) SNOMED Code(s): 50756541 (4) Bicytopenia Current Visit: Yes Status: Acute Code(s): D75.89 - OTHER SPECIFIED DISEASES OF BLOOD AND BLOOD-FORMING ORGANS SNOMED Code(s): 96143462 (5) Head and neck cancer Current Visit: Yes Status: Acute Code(s): C76.0 - MALIGNANT NEOPLASM OF HEAD, FACE AND NECK SNOMED Code(s): 025543191 (6) Lung cancer Current Visit: Yes Status: Acute Code(s): C34.90 - MALIGNANT NEOPLASM OF UNSP PART OF UNSP BRONCHUS OR LUNG SNOMED Code(s): 243695015 Plan: Assessment and Plan: Pneumonia: - In picture of neutropenia: - IV antibiotics and repeat cultures ordered - Recommend Levaquin at discharge given likely discharge while remaining neutropenic Neutropenia: - COntinue on Zarxio - Daily CBC - Abx - Monitoring closely Increased Liver Function: - Waiting for CMP to result today. - Improved - Discontinue Statin - Check Coags - Ultrasound without abnormalities Worsening Thrombocytopenia: - increased LFTs, however trending down - Stable Coags - MOnitor for s/s bleeding - PLatelets 9K , Transfuse today Pneumoperitoneum The patient has been evaluated by surgery. At this time and pneumoperitoneum was felt to be most likely postsurgical. Scans have shown no extravasation of contrast. The patient is tolerating tube feeds Failure to thrive - Generalized Myopathy/Weakess - This was due to progressive difficulty in swallowing, after surgery and subsequent chemoradiation. - Patient is now status post PEG placement and is tolerating PEG feeds well so far. Head and neck cancer Patient is status post radical resection and is currently receiving chemoradiation. He is approximately half way through his treatment. His presentation with progressive difficulty swallowing, malnutrition and failure to thrive is, in most part, due to effects of treatment. - Case was discussed with case management. They have discussed the case with the patient's daughter. At this time subacute rehab is being considered which appears reasonable. However with rehab, the patient will not be able to have chemotherapy and radiation and therefore that will necessitate a break in treatment. - The patient's performance status at this time is certainly quite compromised. Therefore if a short-term rehab such as 1-2 weeks, along with better ongoing nutrition through his tube feeds is able to improve his performance status to where he can resume treatment with much better chance of completing completing it without further interruptions. In this situation, based on risk versus benefit this would be reasonable in my opinion. This was discussed in detail with the patient Lung cancer The patient is status post resection for stage III adenocarcinoma of the lung. The plan is for him to have adjuvant chemotherapy after completion of chemoradiation for his head and neck cancer. Even from this standpoint, measures that can improve his performance status sufficiently, would be quite beneficial. Discussed in detail with primary team Dr. Bull spoke with primary team and plan for discharge home, on Antibiotics, and follow-up check labs in am. Physician attest: I have completed the full history and physical and agree with above dictation, dictated as a scribe.
[2021-03-06 12:14] LABS: African American GFR (CKD) 131.8 (60.0-200.0); Albumin 2.7 g/dL (3.80-4.90); Albumin/Globulin Ratio 1.29 (1.60-3.17); Anion Gap 10.2 mmol/L (4.00-12.00); Calcium 8.2 mg/dL (8.7-10.3); Carbon Dioxide 30.8 mmol/L (21.6-31.8); Globulin 2.1 g/dL (1.6-3.3); Non-African American GFR(CKD) 113.7 (60.0-200.0); Potassium 3.1 mmol/L (3.5-5.5); Total Bilirubin 0.9 mg/dL (0.2-1.2); Total Protein 4.8 g/dL (6.2-8.2)
--- NOTE | 2021-03-06 15:24 | P.PN ---
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 In the ER he underwent an extensive radiologic evaluation as well. He was found have pneumoperitoneum and surgery was contacted who felt it was related to his recent PEG tube insertion. He was admitted for further surgical evaluation and pain control. Oncology and surgery were consulted. Patient tolerated tube feeds without difficulty. He developed worsening thrombocytopenia throughout his hospital stay as well as neutropenia felt to be secondary to chemotherapy. He was started on GM-CSF. He also developed transaminitis. Liver ultrasound did not show any signs of metastatic disease. Statin was held. Thoracic spine f-jgz-vyqwrljwnnh changes, no fracture Cervical spine j-czd-qjmsvijfsak changes, no fracture Rib and chest y-aul-ficllhjacgjyglsj, coarse interstitial infiltrate in the right lung CT abdomen and pelvis-large pneumoperitoneum, gastrostomy tube shows a stomach of pulling away from the anterior abdominal wall secondary to pneumoperitoneum, pulmonary emphysema and right lower lobe pneumonia Abdominal k-svc-J-tube in good position with no extravasation of contrast Chest x-ray 03/04-patchy airspace opacities in the right midlung and right lung base Patient seen and examined at bedside. He reports that he wants to go home. He reports he spent a lot of time in the hospital over the last 8 months. We discussed that his platelets are low and his white blood cell count is low and that I will need to get clearance from oncology prior to discharge. He reports that this pain is currently well controlled. General: non toxic, no distress, frail, chronically ill-appearing, wasting of temporal and buccal mucosa Derm: warm, dry Head: atraumatic, normocephalic, symmetric Eyes: EOMI, no lid lag, anicteric sclera Mouth: no lip lesion, mucus membranes dry Cardiovascular: S1S2 reg, no murmur, positive posterior tibial pulse bilateral, Lungs: Decreased breath sounds bilateral, no rhonchi, no rales , no accessory muscle use Abdominal: soft, tender to palpation near tube site, no guarding, no appreciable organomegaly Ext: no gross muscle atrophy, no edema, no contractures Neuro: CN II-XI grossly intact, no focal neuro deficits Psych: Alert, oriented, appropriate affect Pneumoperitoneum -Status post peg tube placement and felt to be an appropriate cause of this. No leaking noted from G2 psych evaluation -Surgery recommendations appreciated Neutropenia and thrombocytopenia secondary to chemotherapy for cancer of the head and neck -Oncology recommendations -On GM-CSF -No indication for transfusion at this time line-follow CBC -Oncology has started the patient on cefepime secondary to concerns for pneumonia in the setting of neutropenia. Concern would be that the right lung infiltrate is more reflective of his known cancer with no complaints of increased cough or shortness of breath Hypernatremia - increased free water to 75 mL q 4hours - repeat at 5 am and in AM Severe protein calorie malnutrition, failure to thrive -Continue with tube feedings -Seen by speech therapy. Patient was determined not safe to swallow and would need a modified barium swallow study, however he declined to undergo this swallow study and he realizes he is at risk for aspiration. Transaminitis -Likely secondary to medications -Statin on hold -Liver ultrasound without any signs of metastatic disease Hypernatremia -Likely secondary to decreased water intake -Increase free water tube feeds and 30-75 mL every 4 hours -Repeat sodium level in a.m. History of lung cancer Hypertension Dyslipidemia Home in AM if sodium improved Objective - Vital Signs Vital signs: Vital Signs Temp 97.9 F 03/06/21 12:04 Pulse 81 03/06/21 12:04 Resp 18 03/06/21 11:09 BP 145/84 03/06/21 12:04 Pulse Ox 97 03/06/21 12:04 Intake & Output 03/05/21 03/06/21 03/06/21 18:59 06:59 18:59 Intake Total 270 Output Total 200 Balance -200 270 Weight 43.7 kg 44 kg Intake: Blood Product 270 Platelet Pheresis Pas 270 Psoralen Unit [id number] Output: Urine 200 Other: Voiding Method Urinal Diaper # Voids 1 1 # Bowel Movements 1 - Labs CBC & Chem 7: 03/06/21 04:53 03/06/21 04:53 Labs: Abnormal Lab Results - Last 24 Hours (Table) 03/05/21 03/06/21 03/06/21 Range/Units 17:21 00:08 04:53 WBC 0.8 L* (3.8-10.6) k/uL Plt Count 9 L* (150-450) k/uL Sodium (135-145) mmol/L Potassium (3.5-5.5) mmol/L Chloride (96-109) mmol/L BUN (9.0-27.0) mg/dL Creatinine (0.6-1.5) mg/dL BUN/Creatinine Ratio (12.00-20.00) Ratio Glucose (70-110) mg/dL POC Glucose (mg/dL) 208 H 144 H (75-99) mg/dL Calcium (8.7-10.3) mg/dL AST (14-35) U/L ALT (10-49) U/L Alkaline Phosphatase (41-126) U/L Total Protein (6.2-8.2) g/dL Albumin (3.80-4.90) g/dL Albumin/Globulin Ratio (1.60-3.17) g/dL 03/06/21 03/06/21 03/06/21 Range/Units 04:53 05:46 11:17 WBC (3.8-10.6) k/uL Plt Count (150-450) k/uL Sodium 155 H (135-145) mmol/L Potassium 3.1 L (3.5-5.5) mmol/L Chloride 114 H (96-109) mmol/L BUN 41.0 H (9.0-27.0) mg/dL Creatinine 0.5 L (0.6-1.5) mg/dL BUN/Creatinine Ratio 82.00 H (12.00-20.00) Ratio Glucose 188 H (70-110) mg/dL POC Glucose (mg/dL) 199 H 225 H (75-99) mg/dL Calcium 8.2 L (8.7-10.3) mg/dL AST 81 H (14-35) U/L ALT 219 H (10-49) U/L Alkaline Phosphatase 356 H (41-126) U/L Total Protein 4.8 L (6.2-8.2) g/dL Albumin 2.70 L (3.80-4.90) g/dL Albumin/Globulin Ratio 1.29 L (1.60-3.17) g/dL Microbiology - Last 24 Hours (Table) 03/02/21 00:35 Blood Culture - Preliminary Blood No Growth after 96 hours 03/02/21 00:35 Blood Culture - Preliminary Blood No Growth after 96 hours
[2021-03-06 17:46] LABS: Glucose,Whole Blood 130 mg/dL (75-99)
[2021-03-06] MEDS: FILGRASTIM-SNDZ 300 MCG/0.5 ML SYRINGE SQ SCH (17:51)
[2021-03-06 20:18] LABS: African American GFR (CKD) >90 (>60 ml/min/1.73 sqM); Anion Gap 2 mmol/L; Blood Urea Nitrogen 42 mg/dL (9-20); Calcium 8.3 mg/dL (8.4-10.2); Carbon Dioxide 37 mmol/L (22-30); Chloride 110 mmol/L (98-107); Glucose 159 mg/dL (74-99); Non-African American GFR(CKD) >90 (>60 ml/min/1.73 sqM); Sodium 149 mmol/L (137-145)
[2021-03-06] MEDS: busPIRone HCl 5 MG TAB PO PRN (21:27)
[2021-03-07 00:02] LABS: Glucose,Whole Blood 114 mg/dL (75-99)
[2021-03-07] MEDS: CEFEPIME 2 GM in SODIUM CHLORIDE 0.9% 100 ML IVPB SCH ×2 (00:07→08:35)
[2021-03-07] MEDS: INSULIN ASPART (NovoLOG) 100 UNIT/ML VIAL SQ SCH ×3 (00:07→12:08)
[2021-03-07 05:00] VITALS: BP 121/81; RESP 18; TEMP 97.7
[2021-03-07 05:39] LABS: MCH 29.9 pg (25.0-35.0); MCHC 33.3 g/dL (31.0-37.0); MCV 89.9 fL (80.0-100.0); Mean Platelet Volume 13.6; RBC 4.34 m/uL (4.30-5.90); RDW 15.9 % (11.5-15.5)
[2021-03-07 05:41] LABS: Platelet Count 14 k/uL (150-450); WBC 0.9 k/uL (3.8-10.6)
[2021-03-07 05:55] LABS: African American GFR (CKD) >90 (>60 ml/min/1.73 sqM); Anion Gap 3 mmol/L; Blood Urea Nitrogen 44 mg/dL (9-20); Calcium 8.5 mg/dL (8.4-10.2); Carbon Dioxide 37 mmol/L (22-30); Chloride 108 mmol/L (98-107); Glucose 141 mg/dL (74-99); Non-African American GFR(CKD) >90 (>60 ml/min/1.73 sqM); Potassium 3.7 mmol/L (3.5-5.1); Sodium 148 mmol/L (137-145)
[2021-03-07 06:22] LABS: Glucose,Whole Blood 136 mg/dL (75-99)
[2021-03-07 06:39] LABS: Crenated RBC Present
[2021-03-07 06:40] LABS: Anisocytosis (M) Present; Poikilocytosis (M) Present
[2021-03-07] MEDS: AMIODARONE 200 MG TAB PO SCH (08:35)
[2021-03-07] MEDS: PANTOPRAZOLE 40 MG TABLET PO SCH (08:35)
[2021-03-07] MEDS: METOPROLOL TARTRATE 25 MG TAB PO SCH (08:35)
[2021-03-07 10:16] VITALS: PULSE 75
--- NOTE | 2021-03-07 10:40 | P.PN ---
Subjective Progress Note Date: 03/07/21 Principal diagnosis: Failure to thrive Patient's WBC and Platelets remain decreased despite Platelet transfusion 03/06 and Zarxio daily. Recheck this afternoon platelets 16K and WBC 1.2, improved. He is still cachetic, weak and chronically ill appearing. He was re-educated on sta samir 90 degree upright with tube feeds and not eating PO if coughing as right lung rhonchi wet. Objective - Vital Signs Vital signs: Vital Signs Temp 97.7 F 03/07/21 04:59 Pulse 75 03/07/21 10:16 Resp 18 03/07/21 04:59 BP 121/81 03/07/21 04:59 Pulse Ox 96 03/07/21 10:16 Intake & Output 03/06/21 03/07/21 03/07/21 18:59 06:59 18:59 Intake Total 370 800 Output Total 350 Balance 20 800 Intake: Intake, IV Titration 100 Amount Cefepime 2 gm In Sodium 100 Chloride 0.9% 100 ml @ 25 mls/hr IVPB Q8HR [facility] Rx# :[id number] Oral 500 Tube Feeding 300 Blood Product 270 Platelet Pheresis Pas 270 Psoralen Unit [id number] Other 0 Output: Urine 350 Other: Voiding Method Urinal # Voids 1 - Exam - Constitutional General appearance: Present: mild distress - EENT Eyes: Present: scleral icterus, normal appearance ENT: Present: other - Neck Neck: Present: normal ROM - Respiratory Respiratory: Right: diminished, rhonchi - Cardiovascular Rhythm: regularly irregular - Peripheral edema leg Peripheral Edema: bilateral: 1+ - Gastrointestinal General gastrointestinal: Present: distended, tenderness - Integumentary Integumentary: Present: pale - Musculoskeletal Musculoskeletal: Present: generalized weakness - Psychiatric Psychiatric: Present: A&O x's 3 - Labs CBC & Chem 7: 03/07/21 13:29 03/07/21 13:29 Labs: Abnormal Lab Results - Last 24 Hours (Table) 03/06/21 03/06/21 03/06/21 Range/Units 04:53 04:53 11:17 WBC (3.8-10.6) k/uL RDW (11.5-15.5) % Plt Count (150-450) k/uL Sodium 155 H (135-145) mmol/L Potassium 3.1 L (3.5-5.5) mmol/L Chloride 114 H (96-109) mmol/L Carbon Dioxide (22-30) mmol/L BUN 41.0 H (9.0-27.0) mg/dL Creatinine 0.5 L (0.6-1.5) mg/dL BUN/Creatinine Ratio 82.00 H (12.00-20.00) Ratio Glucose 188 H (70-110) mg/dL POC Glucose (mg/dL) 225 H (75-99) mg/dL Calcium 8.2 L (8.7-10.3) mg/dL Magnesium 1.4 L (1.5-2.4) mg/dL AST 81 H (14-35) U/L ALT 219 H (10-49) U/L Alkaline Phosphatase 356 H (41-126) U/L Total Protein 4.8 L (6.2-8.2) g/dL Albumin 2.70 L (3.80-4.90) g/dL Albumin/Globulin Ratio 1.29 L (1.60-3.17) g/dL 03/06/21 03/06/21 03/07/21 Range/Units 17:45 19:55 00:01 WBC (3.8-10.6) k/uL RDW (11.5-15.5) % Plt Count (150-450) k/uL Sodium 149 H (135-145) mmol/L Potassium (3.5-5.5) mmol/L Chloride 110 H (96-109) mmol/L Carbon Dioxide 37 H (22-30) mmol/L BUN 42 H (9.0-27.0) mg/dL Creatinine 0.40 L (0.6-1.5) mg/dL BUN/Creatinine Ratio (12.00-20.00) Ratio Glucose 159 H (70-110) mg/dL POC Glucose (mg/dL) 130 H 114 H (75-99) mg/dL Calcium 8.3 L (8.7-10.3) mg/dL Magnesium (1.5-2.4) mg/dL AST (14-35) U/L ALT (10-49) U/L Alkaline Phosphatase (41-126) U/L Total Protein (6.2-8.2) g/dL Albumin (3.80-4.90) g/dL Albumin/Globulin Ratio (1.60-3.17) g/dL 03/07/21 03/07/21 03/07/21 Range/Units 04:59 04:59 06:04 WBC 0.9 L* (3.8-10.6) k/uL RDW 15.9 H (11.5-15.5) % Plt Count 14 L* D (150-450) k/uL Sodium 148 H (135-145) mmol/L Potassium (3.5-5.5) mmol/L Chloride 108 H (96-109) mmol/L Carbon Dioxide 37 H (22-30) mmol/L BUN 44 H (9.0-27.0) mg/dL Creatinine 0.53 L (0.6-1.5) mg/dL BUN/Creatinine Ratio (12.00-20.00) Ratio Glucose 141 H (70-110) mg/dL POC Glucose (mg/dL) 136 H (75-99) mg/dL Calcium (8.7-10.3) mg/dL Magnesium (1.5-2.4) mg/dL AST (14-35) U/L ALT (10-49) U/L Alkaline Phosphatase (41-126) U/L Total Protein (6.2-8.2) g/dL Albumin (3.80-4.90) g/dL Albumin/Globulin Ratio (1.60-3.17) g/dL Microbiology - Last 24 Hours (Table) 03/02/21 00:35 Blood Culture - Preliminary Blood No Growth after 120 hours 03/02/21 00:35 Blood Culture - Preliminary Blood No Growth after 120 hours 03/05/21 13:31 Blood Culture - Preliminary Blood No Growth after 24 hours 03/05/21 13:09 Blood Culture - Preliminary Blood No Growth after 24 hours Assessment and Plan (1) Elevated liver enzymes Current Visit: Yes Status: Acute Code(s): R74.8 - ABNORMAL LEVELS OF OTHER SERUM ENZYMES SNOMED Code(s): 580211111 (2) Thrombocytopenia Current Visit: Yes Status: Acute Code(s): D69.6 - THROMBOCYTOPENIA, UNSPECIFIED SNOMED Code(s): 416808381 (3) Generalized muscle weakness Current Visit: Yes Status: Acute Code(s): M62.81 - MUSCLE WEAKNESS (GENERALIZED) SNOMED Code(s): 93533415 (4) Bicytopenia Current Visit: Yes Status: Acute Code(s): D75.89 - OTHER SPECIFIED DISEASES OF BLOOD AND BLOOD-FORMING ORGANS SNOMED Code(s): 97945540 (5) Head and neck cancer Current Visit: Yes Status: Acute Code(s): C76.0 - MALIGNANT NEOPLASM OF HEAD, FACE AND NECK SNOMED Code(s): 330156977 (6) Lung cancer Current Visit: Yes Status: Acute Code(s): C34.90 - MALIGNANT NEOPLASM OF UNSP PART OF UNSP BRONCHUS OR LUNG SNOMED Code(s): 540951625 Plan: Assessment and Plan: Pneumonia: - In picture of neutropenia: - IV antibiotics and repeat cultures ordered - Recommend Levaquin at discharge given likely discharge while remaining ne utropenic Neutropenia: - COntinue on Zarxio - Daily CBC - Abx - Monitoring closely Increased Liver Function: - Waiting for CMP to result today. - Improved - Discontinue Statin - Check Coags - Ultrasound without abnormalities Worsening Thrombocytopenia: - increased LFTs, however trending down - Stable Coags - MOnitor for s/s bleeding - PLatelets 9K , Transfuse today Pneumoperitoneum The patient has been evaluated by surgery. At this time and pneumoperitoneum was felt to be most likely postsurgical. Scans have shown no extravasation of contrast. The patient is tolerating tube feeds Failure to thrive - Generalized Myopathy/Weakess - This was due to progressive difficulty in swallowing, after surgery and subsequent chemoradiation. - Patient is now status post PEG placement and is tolerating PEG feeds well so far. Head and neck cancer Patient is status post radical resection and is currently receiving chemoradiation. He is approximately half way through his treatment. His presentation with progressive difficulty swallowing, malnutrition and failure to thrive is, in most part, due to effects of treatment. - Case was discussed with case management. They have discussed the case with the patient's daughter. At this time subacute rehab is being considered which appears reasonable. However with rehab, the patient will not be able to have chemotherapy and radiation and therefore that will necessitate a break in treatment. - The patient's performance status at this time is certainly quite compromised. Although he refuses further rehab in [facility], he has chosen home with homecare Lung cancer - The patient is status post resection for stage III adenocarcinoma of the lung. - The plan is for him to have adjuvant chemotherapy after completion of chemoradiation for his head and neck cancer. - Even from this standpoint, measures that can improve his performance status sufficiently, would be quite beneficial, however the persistent cytopenias may place havoc on resuming treatment restart Discussed in detail with primary team HE will need Homecare with PT/OT Recommend Palliaitive care at discharge Levaquin sent May follow-up wednesday to resume growth factor and recheck counts Bleeding precautions discussed in detail Repeat Chest xray and cbc if not worse ok for discharge with close followup and understandinf og all riskd Dr. Bull spoke with primary team and plan for discharge home, on Antibiotics, and follow-up check labs in am. Physician attest: I have completed the full history and physical and agree with above dictation, dictated as a scribe.
--- NOTE | 2021-03-07 11:19 | P.DS ---
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 In the ER he underwent an extensive radiologic evaluation as well. He was found have pneumoperitoneum and surgery was contacted who felt it was related to his recent PEG tube insertion. He was admitted for further surgical evaluation and pain control. Oncology and surgery were consulted. Patient tolerated tube feeds without difficulty. He developed worsening thrombocytopenia throughout his hospital stay as well as neutropenia felt to be secondary to chemotherapy. He was started on GM-CSF. He also developed transaminitis. Liver ultrasound did not show any signs of metastatic disease. Statin was held. Thoracic spine f-uur-cwfftdqnlnx changes, no fracture Cervical spine q-snt-eopvjrfihkl changes, no fracture Rib and chest h-iuc-ynomkbncpwkfluos, coarse interstitial infiltrate in the right lung CT abdomen and pelvis-large pneumoperitoneum, gastrostomy tube shows a stomach of pulling away from the anterior abdominal wall secondary to pneumoperitoneum, pulmonary emphysema and right lower lobe pneumonia Abdominal n-akp-Q-tube in good position with no extravasation of contrast Chest x-ray 03/04-patchy airspace opacities in the right midlung and right lung base Pneumoperitoneum Generalized Myopathy Generalized weakness Neutropenia and thrombocytopenia secondary to chemotherapy for cancer of the head and neck Severe protein calorie malnutrition, failure to thrive Hypernatremia -Status post peg tube placement and felt to be an appropriate cause of pneumoperitoneum, followed along by surgery who recommended conservative management and observation. No leaking noted from site evaluation. Following PEG tube placement, patient was started on tube feeds and these were increase and tolerated well by the patient. Patient also developed hypernatremia which improved with free water flushes, but was still hypernatremic and day of discharge. I did recommend that he have a repeat blood check and stay in-house until sodium had improved completely, however, patient favored going home with short-term follow-up with oncology and primary care physician with repeat BMP check. Patient had been on IV cefepime, which was transitioned to by mouth levofloxacin given neutropenia and thrombocytopenia despite one unit of platelet transfusion as well as GM-CSF injections. Oncology continue to follow the patient while in the hospital, and will follow up closely with the patient early next week. Patient is incredibly emaciated in the background of head and neck cancer with lung cancer with possible metastases. I spoke with the that patient would be appropriate to be seen in consultation with palliative care throughout his chemotherapy and radiation therapy, and this will be arranged early next week as well by case management. I spent 40 minutes preparing this discharge Assessment: Gen: awake, alert, severely cachectic HEENT: normocephalic, atraumatic, good hearing acuity, dry mucous membranes Resp: good air exchange, breathing comfortably with no accessory muscle use, clear to auscultation bilaterally CVS: good distal perfusion x 4, regular rate and rhythm without murmurs GI: soft, NTTP, ND, appropriate bowel sounds, + PEG tube with no leakage surrounding the site, clean, dry, intact dressing : no SPT, no CVAT, elise catheter not present MSK: no pitting edema, no clubbing Neuro: non-focal, moving all extremities Psych: cooperative, anxious mood Patient Condition at Discharge: Serious Plan - Discharge Summary Discharge Rx Participant: No New Discharge Prescriptions: New levoFLOXacin 750 mg PO DAILY 1 Days #5 tab Melatonin 5 mg PO HS PRN tablet PRN Reason: Insomnia Filgrastim-Sndz [Zarxio] 300 mcg SQ DAILY@1800 syringe Continue Metoprolol Tartrate [Lopressor] 25 mg PO DAILY Pantoprazole [Protonix] 40 mg PO DAILY Atorvastatin [Lipitor] 20 mg PO HS Sertraline HCl [Zoloft] 200 mg PO HS Ondansetron HCl [Zofran] 4 tab PO Q8H PRN PRN Reason: Nausea busPIRone HCL [Buspar] 7.5 mg PO BID PRN PRN Reason: Anxiety Amiodarone [Cordarone] 400 mg PO DAILY Discontinued dronabinoL [Marinol] See Taper PO DIRECTED Tacho's Solution(Dexamethasone/Lidocaine/Benadryl/Nystatin/Maalox 1:1) 5 ml PO QID Discharge Medication List Metoprolol Tartrate [Lopressor] 25 mg PO DAILY 01/27/21 [History] Pantoprazole [Protonix] 40 mg PO DAILY 01/27/21 [History] Sertraline HCl [Zoloft] 200 mg PO HS 01/27/21 [History] Atorvastatin [Lipitor] 20 mg PO HS 02/03/21 [History] Ondansetron HCl [Zofran] 4 tab PO Q8H PRN 02/03/21 [History] Amiodarone [Cordarone] 400 mg PO DAILY 03/02/21 [History] busPIRone HCL [Buspar] 7.5 mg PO BID PRN 03/02/21 [History] Filgrastim-Sndz [Zarxio] 300 mcg SQ DAILY@1800 syringe 03/07/21 [Rx] Melatonin 5 mg PO HS PRN tablet 03/07/21 [Rx] levoFLOXacin 750 mg PO DAILY 1 Days #5 tab 03/07/21 [Rx] Follow up Appointment(s)/Referral(s): [facility] [NON-STAFF] - As Needed (hospital bed and walker) Nati Gutierrez DO [Primary Care Provider] - 03/11/21 3:00 pm Kay Christensen NPC [Nurse Practitioner] - 03/10/21 10:15 am [facility], [NON-STAFF] - 1 Week Patient Instructions/Handouts: Levofloxacin (By mouth), Weakness (DC), Thrombocytopenia (DC), Hypernatremia (DC) Discharge Disposition: HOME WITH HOME HEALTH SERVICES
--- NOTE | 2021-03-07 13:50 | XR ---
EXAMINATION TYPE: XR chest 2V DATE OF EXAM: 03/07/2021 COMPARISON: NONE HISTORY: Rule out aspiration pneumonia TECHNIQUE: Frontal and lateral views of the chest are obtained. FINDINGS: There is a residual pneumoperitoneum, which is known below the bilateral hemidiaphragms. Diffuse patchy airspace opacities are seen at the right midlung and right lower lobe and left perihil ar region are suggestive of infectious/inflammatory process, such as pneumonia.. No large pleural eff usion. No pneumothorax. Heart size is within normal limits. Atherosclerotic aorta. Hyperaeration of l ungs and flattening of the diaphragms with increased retrosternal airspace suggestive of severe COPD. IMPRESSION: 1. Patchy airspace opacities within the right midlung and right lung base and left midlung are sugges tive of infectious/inflammatory processes, such as pneumonia. 2. Severe emphysematous changes. 3. Atherosclerotic aorta. 4. Residual pneumoperitoneum under the hemidiaphragms has decreased since prior exam.
[2021-03-07 13:51] LABS: HCT 39.3 % (39.0-53.0); HGB 13.6 gm/dL (13.0-17.5); MCH 31.1 pg (25.0-35.0); MCHC 34.6 g/dL (31.0-37.0); RBC 4.37 m/uL (4.30-5.90); RDW 15.2 % (11.5-15.5); WBC 1.5 k/uL (3.8-10.6)
[2021-03-07 14:09] VITALS: BMI 14.3
[2021-03-07 14:29] LABS: Platelet Count 16 k/uL (150-450)
[2021-03-07 14:35] LABS: African American GFR (CKD) >90 (>60 ml/min/1.73 sqM); Anion Gap 5 mmol/L; Blood Urea Nitrogen 50 mg/dL (9-20); Calcium 8.4 mg/dL (8.4-10.2); Carbon Dioxide 38 mmol/L (22-30); Chloride 103 mmol/L (98-107); Glucose 73 mg/dL (74-99); Non-African American GFR(CKD) >90 (>60 ml/min/1.73 sqM); Potassium 3.4 mmol/L (3.5-5.1); Sodium 146 mmol/L (137-145)
[2021-03-07 15:14] LABS: Band Neutrophils % 6 %; Lymphocytes # (M) 0.26 k/uL (1.0-4.8); Metamyelocytes # (M) 0.02 k/uL (0); Metamyelocytes % 1 %; Monocytes # (M) 0.08 k/uL (0-1.0); Myelocytes # (M) 0.03 k/uL (0); Myelocytes % 2 %; Neutrophils % (M) 69 %; Nucleated Red Blood Cells 0 /100 WBC (0-0); Total Cells Counted 100
[2021-03-07 15:15] LABS: Anisocytosis (M) Present; Crenated RBC Present; Poikilocytosis (M) Present; RBC Fragments Present
[2021-03-07] MEDS: FILGRASTIM-SNDZ 300 MCG/0.5 ML SYRINGE SQ SCH (16:18)
== END 2021-03-07 17:08 | disposition home health service (06) | DRG 393 ==
LOC: EC 20:41 → 5NMEDONC 03-02 00:45 → OBSVTOIN 03-04 16:38
PROVIDERS: ADMIT Internal Medicine; ATTEND Internal Medicine
PROC: 3E0G76Z Introduction of Nutritional Substance into Upper GI, Via Natural or Artificial Opening (ICD-10-PCS; principal; 2021-03-04)
DX: Z43.1 Encounter for attention to gastrostomy (principal); E43 Unspecified severe protein-calorie malnutrition; J18.9 Pneumonia, unspecified organism; C34.11 Malignant neoplasm of upper lobe, right bronchus or lung; E87.0 Hyperosmolality and hypernatremia; R64 Cachexia; C77.1 Secondary and unspecified malignant neoplasm of intrathoracic lymph nodes; C09.0 Malignant neoplasm of tonsillar fossa; D69.59 Other secondary thrombocytopenia; D70.1 Agranulocytosis secondary to cancer chemotherapy; E16.2 Hypoglycemia, unspecified; E78.5 Hyperlipidemia, unspecified; E86.0 Dehydration; E87.6 Hypokalemia; F17.210 Nicotine dependence, cigarettes, uncomplicated; F32.9 Major depressive disorder, single episode, unspecified; F41.9 Anxiety disorder, unspecified; I10 Essential (primary) hypertension; K66.8 Other specified disorders of peritoneum; J43.9 Emphysema, unspecified; R13.10 Dysphagia, unspecified; R62.7 Adult failure to thrive; R74.01 Elevation of levels of liver transaminase levels; Z20.822 Contact with and (suspected) exposure to COVID-19; S20.211A Contusion of right front wall of thorax, initial encounter; Y04.2XXA Assault by strike against or bumped into by another person, initial encounter; Y92.89 Other specified places as the place of occurrence of the external cause; S80.211A Abrasion, right knee, initial encounter; M54.2 Cervicalgia; M19.90 Unspecified osteoarthritis, unspecified site; M54.9 Dorsalgia, unspecified; T45.1X5A Adverse effect of antineoplastic and immunosuppressive drugs, initial encounter; Z85.828 Personal history of other malignant neoplasm of skin; Z79.82 Long term (current) use of aspirin; Z79.899 Other long term (current) drug therapy; Z90.2 Acquired absence of lung [part of]
CPT/HCPCS: 36415; 71046; 72050; 72072; 74018; 74177; 76705; 80048; 80053; 81001; 82150; 82247; 82947; 83690; 83735; 84450; 84460; 85025; 85027; 85610; 85730; 86850; 86900; 86901; 87040; 87635; 96361; 96374; 96375; 99285